=== PATIENT | male | born 1950 | race Caucasian/White ===

== ENCOUNTER → 2018-07-31 | Outpatient (CLI) | payer OTHER, MEDICARE ==
[~2018-07-31] MED LIST: ALLOPURINOL300 MG PO; AMLODIPINE BESYL5 MG PO; ASPIRIN BUFFER325 MG PO; BENICAR/HCT PO; FLOMAX0.4 MG PO; FUROSEMIDE20 MG PO; GLIMEPIRIDE2 MG PO; JANUMET 50-1,01 EACH; JANUVIA PO; LIPITOR10 MG PO; METAMUCIL; METOPROLOL SUC100 MG PO; PAROXETINE HCL10 MG PO; PROCARDIA XL30 MG PO; QUINAPRIL HCL40 MG PO; RANITIDINE HCL300 MG PO; VICTOZA PO; VYTORIN 10-401 EACH
--- NOTE | 2018-07-31 17:10 | Diagnostic Imaging Report ---
EXAM: Testicular Ultrasound DATE: 07/31/2018 3:54 PM INDICATION: Benign neoplasm epididymis. COMPARISON: None FINDINGS: Routine testicular ultrasound was performed. Right testicle: 38 x 18 x 27 mm. Flow is present. No testicular mass identified. 6 mm cyst superiorly. 5 mm cyst midportion with minimal internal echogenicity. Left testicle: 37 x 20 x 22 mm. Flow is present. No testicular mass identified. 3 mm cyst superiorly. Right epididymis: 10 x 11 x 9 mm. 4 mm epididymal cyst. Left epididymis: 13 x 8 x 7 mm.. Several epididymal cysts, largest 7 mm. Additionally, there is a 5 mm hypoechoic lesion, not distinctly cyst. Other: None of significance. IMPRESSION: 1. No evidence of testicular torsion or mass. 2. Bilateral testicular and epididymal cyst. 3. Additional 5 mm hypoechoic lesion left epididymis, appearing solid, not cystic. 4. Urologic follow-up recommended. Signed by: Dr. Kishore Valenzuela MD on 07/31/2018 5:06 PM
== END ==
LOC: US 15:44
PROVIDERS: ATTEND Urology
DX: D29.30 Benign neoplasm of unspecified epididymis (principal)
CPT/HCPCS: 76870; 93976

== ENCOUNTER → 2018-10-31 | Outpatient (CLI) | payer OTHER, MEDICARE ==
--- NOTE | 2018-10-31 15:46 | Diagnostic Imaging Report ---
EXAMINATION: Scrotal ultrasound CLINICAL INDICATION: Epididymal cyst. COMPARISON: 07/31/2018. TECHNIQUE: Grayscale and color Doppler evaluation of the scrotum was performed in transverse and longitudinal planes. FINDINGS: The right testicle measures 3.7 x 1.2 x 2.7 cm. Simple cyst superiorly measures 6 mm. Simple cyst more inferiorly measures 0.4 cm; both stable compared to prior examination.. The right epididymis measures 0.8 x 0.9 x 1.0 cm. Epididymal head cyst measures 4 mm.. There is no evidence of right hydrocele or varicocele. There is normal flow to the right testicle, without evidence of torsion. The left testicle measures 3.9 x 2 x 2.7 cm. 3 mm cyst superiorly, unchanged. The left epididymis measures 1.2 x 0.8 x 0.7 cm. Epididymal head cyst measures 6 mm. Previously described 5 mm hypoechoic lesion not distinctly cystic, is no longer identified.. Small mildly complex left hydrocele. There is normal flow to the left testicle without evidence of torsion. The scrotum has a normal appearance, without focal lesions. Impression: No testicular torsion or solid mass lesion. Stable bilateral testicular and epididymal head cysts. Previously described hypoechoic lesion in the left epididymal head, not distinctly cystic, is no longer identified. Small mildly complex left hydrocele. Signed by: Dr. Bill Zarate M.D. on 10/31/2018 3:42 PM
== END ==
LOC: US 13:38
PROVIDERS: ATTEND Urology
DX: D29.30 Benign neoplasm of unspecified epididymis (principal); N43.3 Hydrocele, unspecified
CPT/HCPCS: 76870; 93976

== ENCOUNTER → 2021-07-20 | Outpatient (CLI) | payer OTHER, MEDICARE | LOC: US 12:14 | PROVIDERS: ATTEND Internal Medicine Nephrology | DX: N18.4 Chronic kidney disease, stage 4 (severe) (principal) | CPT/HCPCS: 76770; 76857 ==

== ENCOUNTER → 2021-08-29 | Outpatient (CLI) | payer OTHER, MEDICARE ==
[2021-08-29 09:27] LABS: CREATININE, SERUM 2.63 mg/dL (0.72-1.25)
== END ==
LOC: NM 07:49
PROVIDERS: ATTEND Urology
DX: C61 Malignant neoplasm of prostate (principal)
CPT/HCPCS: 36415; 71046; 74176; 78306; 82565; 84520; A9503; A9570

== ENCOUNTER 2021-10-24 11:03 | Inpatient (IN) | payer OTHER, MEDICARE ==
[2021-10-20 14:56] LABS: BASOPHILS # (AUTO) 0.1 (0.0-0.1); EOSINOPHILS # (AUTO) 0.3 (0.0-0.4); EOSINOPHILS % 2.7 % (0.0-6.0); HEMATOCRIT 36.4 % (38.2-49.6); HEMOGLOBIN 12.1 g/dL (14.0-18.0); LYMPHOCYTES # (AUTO) 1.3 (1.0-3.2); LYMPHOCYTES % 13.6 % (18.0-39.1); MEAN CORPUSCULAR HEMOGLOBIN 29.8 pg (28-32); MEAN CORPUSCULAR HGB CONC 33.2 g/dL (31-35); MEAN CORPUSCULAR VOLUME 89.7 fL (81-99); MONOCYTES # (AUTO) 0.9 (0.2-0.8); MONOCYTES % 9.5 % (4.4-11.3); NEUTROPHILS # (AUTO) 6.8 (2.1-6.9); NEUTROPHILS % 72.9 % (38.7-80.0); PLATELET COUNT 247 x10e3/uL (140-360); RED BLOOD COUNT 4.06 x10e6/uL (4.3-5.7); RED CELL DISTRIBUTION WIDTH 14.1 % (11.7-14.4)
[2021-10-20 15:07] LABS: INR 1.03; PROTHROMBIN TIME 14.2 seconds (11.9-14.5)
[2021-10-20 15:08] LABS: PARTIAL THROMBOPLASTIN TIME 38.7 seconds (23.8-35.5)
[2021-10-20 15:12] LABS: ANION GAP 16.9 mmol/L (8-16); CALCIUM 9.3 mg/dL (8.4-10.2); CREATININE, SERUM 2.85 mg/dL (0.72-1.25); POTASSIUM 4.9 mmol/L (3.5-5.1)
[~2021-10-24 11:03] MED LIST changes: +ASPIRIN81 MG PO; +FINASTERIDE5 MG PO; +FISH OIL 1,0001 EAC2 PO; +HUMALOG100 UNIT/1 SQ; +LEVEMIR FL100 UNIT/1 SC; +LEVOTHYROXINE50 MCG PO; +METAMUCIL FIBE3.4 GM PO; +MONTELUKAST SOD10 MG PO; +MULTIVITAMIN1 EACH PO; +PLAVIX75 MG PO; +PROTONIX40 MG PO; +SERTRALINE HCL50 MG PO; +VICTOZA 2-0.6 MG/0.1 INJ
[2021-10-24] MEDS ORDERED: SODIUM CHLORIDE 0.9% 50ML 100 ML ONE (11:13)
[2021-10-24] MEDS ORDERED: ROCURONIUM BROMIDE 10 MG/ML 5ML VIAL IV ONE (13:23)
[2021-10-24] MEDS ORDERED: LIDOCAINE HCL 2% LOCAL INJ 5 ML SDV VIAL INJ ONE (13:23)
[2021-10-24] MEDS ORDERED: GLYCOPYRROLATE INJ 0.2 MG/ML VIAL ONE (13:23)
[2021-10-24] MEDS ORDERED: POVIDONE IODINE 0.05% 0.05 % ML PO ONE (13:23)
[2021-10-24] MEDS ORDERED: SEVOFLURANE INHAL SOLN 250 ML PEN BTL ONE (13:23)
[2021-10-24] MEDS ORDERED: PROPOFOL IV EMULSION 10 MG/ML 20 ML VIAL ONE (13:23)
[2021-10-24] MEDS ORDERED: ONDANSETRON HCL INJ 2MG/ML 2ML 2 MG/ML VIAL ONE (13:23)
[2021-10-24] MEDS ORDERED: NEOSTIGMINE 1 MG/ML 10ML VIAL ONE (13:23)
[2021-10-24] MEDS ORDERED: ACETAMINOPHEN 1000 MG/100 ML 100 ML IV ONE (13:35)
[2021-10-24] MEDS ORDERED: MIDAZOLAM HCL 2 MG/2 ML VIAL ONE (13:50)
[2021-10-24] MEDS ORDERED: FENTANYL CITRATE/PF 100MCG/2 ML INJ ONE ×2 (13:50→15:23)
[2021-10-24] MEDS ORDERED: DIPHENHYDRAMINE HCL INJ 50 MG/ML VIAL IM PRN (14:45)
[2021-10-24] MEDS ORDERED: ONDANSETRON HCL INJ 2MG/ML 2ML 2 MG/ML VIAL IV PRN (14:45)
[2021-10-24] MEDS ORDERED: ACETAMINOPHEN 1000 MG/100 ML IV PRN (14:45)
[2021-10-24] MEDS ORDERED: NALOXONE HCL INJ 0.4 MG/ML AMP IV PRN (14:45)
[2021-10-24] MEDS ORDERED: SUGAMMADEX SODIUM 200 MG/2 ML VIAL IV ONE (14:48)
[2021-10-24 15:03] LABS: BASOPHILS # (AUTO) 0.1 (0.0-0.1); BASOPHILS % 0.6 % (0.0-1.0); EOSINOPHILS # (AUTO) 0.1 (0.0-0.4); EOSINOPHILS % 1.4 % (0.0-6.0); HEMATOCRIT 33.8 % (38.2-49.6); HEMOGLOBIN 11.1 g/dL (14.0-18.0); LYMPHOCYTES # (AUTO) 1.3 (1.0-3.2); LYMPHOCYTES % 13.8 % (18.0-39.1); MEAN CORPUSCULAR HGB CONC 32.8 g/dL (31-35); MEAN CORPUSCULAR VOLUME 91.4 fL (81-99); MONOCYTES # (AUTO) 1.1 (0.2-0.8); MONOCYTES % 11.7 % (4.4-11.3); NEUTROPHILS % 72.2 % (38.7-80.0); PLATELET COUNT 226 x10e3/uL (140-360); RED CELL DISTRIBUTION WIDTH 14.4 % (11.7-14.4)
[2021-10-24 15:20] LABS: ANION GAP 16.9 mmol/L (8-16); CALCIUM 8.3 mg/dL (8.4-10.2); CREATININE, SERUM 2.5 mg/dL (0.72-1.25); POTASSIUM 3.9 mmol/L (3.5-5.1)
[2021-10-24] MEDS: HYDROMORPHONE 0.2MG/ML-SOD CHL 30ML PCA SYRINGE IV PRN (15:55)
[2021-10-24 16:30] VITALS: BP 179/85
[2021-10-24 18:00] VITALS: BP 139/83
[2021-10-24 20:00] VITALS: BP 173/84
[2021-10-24] MEDS: Cefazolin 1 GM in SODIUM CHLORIDE 0.9% 50ML 50 ML IV SCH (20:39)
[2021-10-24] MEDS: SODIUM CHLORIDE 0.9% 250ML IRRIG IR SCH (22:45)
[2021-10-25] VITALS (7 sets, daily range): BP systolic 119–190; BP diastolic 78–93
[2021-10-25] MEDS: SODIUM CHLORIDE 0.9% 250ML IRRIG IR SCH ×6 (02:45→21:46)
[2021-10-25] MEDS: Cefazolin 1 GM in SODIUM CHLORIDE 0.9% 50ML 50 ML IV SCH ×3 (03:41→21:45)
[2021-10-25] MEDS: SODIUM CHLORIDE 0.9% 1000ML 1,000 ML IV SCH ×3 (05:18→21:46)
[2021-10-25 05:27] LABS: BASOPHILS # (AUTO) 0.1 (0.0-0.1); BASOPHILS % 0.7 % (0.0-1.0); EOSINOPHILS # (AUTO) 0.1 (0.0-0.4); EOSINOPHILS % 0.8 % (0.0-6.0); HEMATOCRIT 32.2 % (38.2-49.6); LYMPHOCYTES # (AUTO) 0.7 (1.0-3.2); LYMPHOCYTES % 6.4 % (18.0-39.1); MEAN CORPUSCULAR HGB CONC 34.2 g/dL (31-35); MEAN CORPUSCULAR VOLUME 87.7 fL (81-99); MONOCYTES # (AUTO) 1.5 (0.2-0.8); MONOCYTES % 12.7 % (4.4-11.3); NEUTROPHILS # (AUTO) 9.1 (2.1-6.9); PLATELET COUNT 224 x10e3/uL (140-360); RED BLOOD COUNT 3.67 x10e6/uL (4.3-5.7); RED CELL DISTRIBUTION WIDTH 14.3 % (11.7-14.4)
[2021-10-25 05:46] LABS: ANION GAP 16.6 mmol/L (8-16); CALCIUM 8.1 mg/dL (8.4-10.2); CREATININE, SERUM 2.35 mg/dL (0.72-1.25); POTASSIUM 3.6 mmol/L (3.5-5.1)
[2021-10-25] MEDS: METOPROLOL TARTRATE INJ 1 MG/ML VIAL IV PRN ×4 (05:49→21:55)
[2021-10-25] MEDS: HYDROMORPHONE 0.2MG/ML-SOD CHL 30ML PCA SYRINGE IV PRN (22:31)
[2021-10-26] VITALS (10 sets, daily range): BP systolic 131–203; BP diastolic 74–98
[2021-10-26] MEDS: SODIUM CHLORIDE 0.9% 250ML IRRIG IR SCH ×6 (05:18→21:43)
[2021-10-26] MEDS: Cefazolin 1 GM in SODIUM CHLORIDE 0.9% 50ML 50 ML IV SCH ×3 (05:18→20:31)
[2021-10-26] MEDS ORDERED: HYDRALAZINE HCL 20 MG/ML VIAL IV ONE (05:30)
[2021-10-26 05:58] LABS: BASOPHILS # (AUTO) 0.1 (0.0-0.1); BASOPHILS % 0.5 % (0.0-1.0); EOSINOPHILS # (AUTO) 0.1 (0.0-0.4); EOSINOPHILS % 0.9 % (0.0-6.0); HEMATOCRIT 33.5 % (38.2-49.6); HEMOGLOBIN 11.4 g/dL (14.0-18.0); LYMPHOCYTES # (AUTO) 0.9 (1.0-3.2); LYMPHOCYTES % 7.4 % (18.0-39.1); MEAN CORPUSCULAR HEMOGLOBIN 29.7 pg (28-32); MEAN CORPUSCULAR VOLUME 87.2 fL (81-99); MONOCYTES # (AUTO) 1.6 (0.2-0.8); MONOCYTES % 13.3 % (4.4-11.3); NEUTROPHILS # (AUTO) 9.1 (2.1-6.9); NEUTROPHILS % 77.4 % (38.7-80.0); PLATELET COUNT 215 x10e3/uL (140-360); RED BLOOD COUNT 3.84 x10e6/uL (4.3-5.7); RED CELL DISTRIBUTION WIDTH 14.4 % (11.7-14.4)
[2021-10-26 06:34] LABS: ANION GAP 17.5 mmol/L (8-16); CALCIUM 8.5 mg/dL (8.4-10.2); CREATININE, SERUM 2.08 mg/dL (0.72-1.25); POTASSIUM 3.5 mmol/L (3.5-5.1)
[2021-10-26] MEDS: SODIUM CHLORIDE 0.9% 1000ML 1,000 ML IV SCH ×3 (09:00→19:00)
[2021-10-26] MEDS ORDERED: HYDRALAZINE HCL 20 MG/ML VIAL IV PRN (09:15)
[2021-10-26] MEDS: HYDRALAZINE HCL 20 MG/ML VIAL IV PRN ×2 (11:20→17:58)
[2021-10-26] MEDS ORDERED: NIFEDIPINE CR 30 MG TAB PO SCH ×2 (15:30→21:00)
[2021-10-26] MEDS: NIFEDIPINE CR 30 MG TAB PO SCH (21:42)
[2021-10-27] VITALS: BP 152/81
[2021-10-27] MEDS: SODIUM CHLORIDE 0.9% 250ML IRRIG IR SCH ×4 (02:05→14:18)
[2021-10-27] MEDS: Cefazolin 1 GM in SODIUM CHLORIDE 0.9% 50ML 50 ML IV SCH ×2 (03:24→12:12)
[2021-10-27 04:00] VITALS: BP 178/90
[2021-10-27] MEDS: SODIUM CHLORIDE 0.9% 1000ML 1,000 ML IV SCH ×2 (04:59→15:00)
[2021-10-27] MEDS: HYDRALAZINE HCL 20 MG/ML VIAL IV PRN (05:19)
[2021-10-27 05:36] LABS: BASOPHILS # (AUTO) 0.1 (0.0-0.1); BASOPHILS % 0.4 % (0.0-1.0); EOSINOPHILS # (AUTO) 0.3 (0.0-0.4); EOSINOPHILS % 2.2 % (0.0-6.0); HEMOGLOBIN 11.7 g/dL (14.0-18.0); LYMPHOCYTES # (AUTO) 1.2 (1.0-3.2); MEAN CORPUSCULAR HEMOGLOBIN 29.9 pg (28-32); MEAN CORPUSCULAR HGB CONC 34.4 g/dL (31-35); MONOCYTES # (AUTO) 1.5 (0.2-0.8); MONOCYTES % 12.8 % (4.4-11.3); NEUTROPHILS # (AUTO) 8.8 (2.1-6.9); NEUTROPHILS % 74.1 % (38.7-80.0); PLATELET COUNT 225 x10e3/uL (140-360); RED BLOOD COUNT 3.91 x10e6/uL (4.3-5.7); RED CELL DISTRIBUTION WIDTH 14.6 % (11.7-14.4)
[2021-10-27 06:06] LABS: ANION GAP 17.1 mmol/L (8-16); CALCIUM 8.6 mg/dL (8.4-10.2); POTASSIUM 3.1 mmol/L (3.5-5.1)
[2021-10-27 06:44] LABS: CREATININE, SERUM 1.86 mg/dL (0.72-1.25)
[2021-10-27 06:47] VITALS: BP 166/88
[2021-10-27 08:00] VITALS: BP 178/84
[2021-10-27] MEDS ORDERED: ONDANSETRON HCL 4 MG ORAL DISINTEGRATING TAB PO PRN (08:00)
[2021-10-27] MEDS ORDERED: TRAMADOL HCL 50 MG TAB PO PRN (08:45)
[2021-10-27] MEDS ORDERED: DOCUSATE SODIUM 100 MG CAP PO SCH ×2 (09:00→10:00)
[2021-10-27] MEDS ORDERED: FINASTERIDE 5 MG TAB PO SCH (09:00)
[2021-10-27] MEDS ORDERED: NIFEDIPINE CR 30 MG TAB PO SCH (09:00)
[2021-10-27] MEDS ORDERED: TAMSULOSIN HCL 0.4 MG CAP PO SCH (09:00)
[2021-10-27] MEDS: NIFEDIPINE CR 30 MG TAB PO SCH (09:00)
[2021-10-27] MEDS ORDERED: POTASSIUM CHLORIDE 20 MEQ TAB CR PO ONE ×2 (11:00)
[2021-10-27 11:10] VITALS: BP 178/84
[2021-10-27 12:00] VITALS: BP 133/70
[2021-10-27] MEDS ORDERED: ULTRAM 50MG50 MG PO (15:51)
[2021-10-27] MEDS ORDERED: BACTRIM DS TAB1 EACH PO (15:52)
[2021-10-27] MEDS ORDERED: ATORVASTATIN 40 MG TAB PO SCH (21:00)
== END 2021-10-27 16:55 | disposition home or self-care (01) | DRG 715 ==
LOC: OR 11:03 → PACU V 14:40 → MED/SURG 16:26
PROC: 07BC0ZX Excision of Pelvis Lymphatic, Open Approach, Diagnostic (ICD-10-PCS; 2021-10-24)
PROC: 0WQF0ZZ Repair Abdominal Wall, Open Approach (ICD-10-PCS; 2021-10-24)
PROC: 0TJB8ZZ Inspection of Bladder, Via Natural or Artificial Opening Endoscopic (ICD-10-PCS; principal; 2021-10-24 12:30)
DX: C61 Malignant neoplasm of prostate (principal); N18.4 Chronic kidney disease, stage 4 (severe); N13.8 Other obstructive and reflux uropathy; N17.9 Acute kidney failure, unspecified; N40.1 Benign prostatic hyperplasia with lower urinary tract symptoms; R35.1 Nocturia; K42.9 Umbilical hernia without obstruction or gangrene; E87.6 Hypokalemia; E66.9 Obesity, unspecified; N28.1 Cyst of kidney, acquired; E78.5 Hyperlipidemia, unspecified; E11.22 Type 2 diabetes mellitus with diabetic chronic kidney disease; I25.10 Atherosclerotic heart disease of native coronary artery without angina pectoris; D64.9 Anemia, unspecified; I13.10 Hypertensive heart and chronic kidney disease without heart failure, with stage 1 through stage 4 chronic kidney disease, or unspecified chronic kidney disease; Z68.31 Body mass index [BMI] 31.0-31.9, adult; Z88.5 Allergy status to narcotic agent; Z88.8 Allergy status to other drugs, medicaments and biological substances; Z95.1 Presence of aortocoronary bypass graft; Z95.5 Presence of coronary angioplasty implant and graft; Z86.73 Personal history of transient ischemic attack (TIA), and cerebral infarction without residual deficits; Z82.49 Family history of ischemic heart disease and other diseases of the circulatory system; Z83.3 Family history of diabetes mellitus; Z87.891 Personal history of nicotine dependence; Z20.822 Contact with and (suspected) exposure to COVID-19
CPT/HCPCS: 36415; 80048; 82948; 83735; 85025; 85610; 85730; 86850; 86900; 88305; 88342; 93005; 94799; J0360; J0690; J2001; J2250; J2405; J2710; J3010; J7030; U0002

== ENCOUNTER 2024-06-22 08:24 | Inpatient (IN) | payer MEDICARE, OTHER ==
[~2024-06-22] VITALS: Ht 185.4 cm; Wt 97.5 kg
[2024-06-22] VITALS (7 sets, daily range): BP systolic 142–153; BP diastolic 82–87; PULSE 77–89; RESP 16–20; TEMP 97.7–99.1; O2SAT 96–98
[~2024-06-22 08:24] MED LIST changes: +B12 ACTIVE1000 MCG PO; +BACTRIM DS TAB1 EACH PO; +CALCIUM CITRAT200 MG PO; +DOXYCYCLINE HY100 M3 PO; +JYNARQUE PO; +LASIX40 MG PO; +LISINOPRIL10 MG PO; +MELATONIN10 M1 PO; +MUPIROCIN22 GM TOP; +ULTRAM 50MG50 MG PO; +VICTOZA 2-0.6 MG/0.1 SQ; +VITAMIN D350 MCG PEG; +[UNRECOGNIZED DRUG - OTHER] PO
[2024-06-22] MEDS ORDERED: SODIUM CHLORIDE FLUSH 10 ML SYR IV PRN (08:45)
[2024-06-22 08:51] LABS: BASOPHILS # (AUTO) 0.1 (0.0-0.1); BASOPHILS % 0.6 % (0.0-1.0); EOSINOPHILS # (AUTO) 0.4 (0.0-0.4); EOSINOPHILS % 3.5 % (0.0-6.0); HEMATOCRIT 31.4 % (38.2-49.6); HEMOGLOBIN 10.7 g/dL (14.0-18.0); LYMPHOCYTES # (AUTO) 1.5 (1.0-3.2); LYMPHOCYTES % 14.3 % (18.0-39.1); MEAN CORPUSCULAR HEMOGLOBIN 32.2 pg (28-32); MEAN CORPUSCULAR HGB CONC 34.1 g/dL (31-35); MEAN CORPUSCULAR VOLUME 94.6 fL (81-99); MONOCYTES # (AUTO) 1.2 (0.2-0.8); MONOCYTES % 12.1 % (4.4-11.3); NEUTROPHILS % 69.2 % (38.7-80.0); PLATELET COUNT 225 x10e3/uL (140-360); RED BLOOD COUNT 3.32 x10e6/uL (4.3-5.7); WHITE BLOOD COUNT 10.18 x10e3/uL (4.8-10.8)
[2024-06-22] MEDS ORDERED: PAROXETINE HCL20 MG PO (08:52)
[2024-06-22 09:12] LABS: ALBUMIN/GLOBULIN RATIO 1.5 (0.8-2.0); ANION GAP 17.8 mmol/L (8-16); BILIRUBIN,TOTAL 1.3 mg/dL (0.2-1.2); CALCIUM 9.6 mg/dL (8.4-10.2); POTASSIUM 3.8 mmol/L (3.5-5.1); TOTAL PROTEIN 6.7 g/dL (6.5-8.1)
[2024-06-22 09:18] LABS: TROPONIN I 0.117 ng/mL (0-0.300)
[2024-06-22] MEDS ORDERED: SODIUM CHLORIDE FLUSH 10 ML SYR INJ PRN (11:00)
[2024-06-22] MEDS ORDERED: ONDANSETRON HCL INJ 2MG/ML 2ML 2 MG/ML VIAL IV PRN (11:00)
[2024-06-22] MEDS: ASPIRIN 81 MG CHEW TAB PO ONE (11:16)
[2024-06-22] MEDS: FUROSEMIDE INJ 10 MG/ML 4 ML VIAL IV SCH (11:22)
[2024-06-22] MEDS ORDERED: ACETAMINOPHEN 325 MG TAB PO PRN (14:15)
[2024-06-22] MEDS ORDERED: DEXTROSE 50% SYRINGE 50 ML IV PRN (14:15)
[2024-06-22] MEDS ORDERED: JYNARQUE PO ×2 (15:15)
[2024-06-22] MEDS ORDERED: APIXABAN 5 MG TABLET PO SCH (17:00)
[2024-06-22] MEDS: INSULIN LISPRO 100 UNIT/1 ML 3ML VIAL SQ SCH (17:24)
[2024-06-22 19:42] LABS: COLOR,URINE STRAW (YELLOW)
[2024-06-22 19:43] LABS: BACTERIA,URINE RARE /HPF; BILIRUBIN,URINE NEGATIVE (NEGATIVE); CLARITY,URINE CLEAR (CLEAR); GLUCOSE, URINE NEGATIVE (NEGATIVE); KETONES,URINE NEGATIVE (NEGATIVE); LEUKOCYTE ESTERASE ,URINE NEGATIVE (NEGATIVE); NITRITE,URINE NEGATIVE (NEGATIVE); PH,URINE 6 (5 - 7); PROTEIN,URINE DIPSTICK NEGATIVE (NEGATIVE); RBC,URINE 0-5 /HPF (0-5); URINE UROBILINOGEN 0.2 mg/dL (0.2 - 1); WBC,URINE (MAN) 0-5 /HPF (0-5)
[2024-06-22] MEDS: TOLVAPTAN 30 MG PO SCH (21:00)
[2024-06-22] MEDS ORDERED: ZOLPIDEM TARTRATE 5 MG TAB PO PRN (21:00)
[2024-06-22] MEDS: ATORVASTATIN 40 MG TAB PO SCH (21:03)
[2024-06-22] MEDS: MONTELUKAST SODIUM 10 MG TAB PO SCH (21:03)
[2024-06-22] MEDS: PANTOPRAZOLE SODIUM 40 MG SUSPDR.PKT PO SCH (21:03)
[2024-06-22] MEDS: METOPROLOL SUCCINATE 50 MG TAB XL PO SCH (21:04)
[2024-06-23] VITALS (9 sets, daily range): BP systolic 131–163; BP diastolic 68–89; PULSE 56–80; RESP 16–19; TEMP 97.8–98.7; O2SAT 95–100
[2024-06-23] MEDS: LEVOTHYROXINE SODIUM 25 MCG TABLET PO SCH (05:05)
[2024-06-23 06:00] LABS: BASOPHILS # (AUTO) 0.1 (0.0-0.1); BASOPHILS % 0.6 % (0.0-1.0); EOSINOPHILS # (AUTO) 0.4 (0.0-0.4); EOSINOPHILS % 3.6 % (0.0-6.0); HEMATOCRIT 33.6 % (38.2-49.6); HEMOGLOBIN 10.9 g/dL (14.0-18.0); LYMPHOCYTES # (AUTO) 1.4 (1.0-3.2); LYMPHOCYTES % 11.8 % (18.0-39.1); MEAN CORPUSCULAR HEMOGLOBIN 31.4 pg (28-32); MEAN CORPUSCULAR HGB CONC 32.4 g/dL (31-35); MEAN CORPUSCULAR VOLUME 96.8 fL (81-99); MONOCYTES # (AUTO) 1.1 (0.2-0.8); MONOCYTES % 9.2 % (4.4-11.3); NEUTROPHILS # (AUTO) 8.5 (2.1-6.9); NEUTROPHILS % 74.5 % (38.7-80.0); PLATELET COUNT 239 x10e3/uL (140-360); RED BLOOD COUNT 3.47 x10e6/uL (4.3-5.7); WHITE BLOOD COUNT 11.46 x10e3/uL (4.8-10.8)
[2024-06-23 06:13] LABS: TROPONIN I 0.151 ng/mL (0-0.300)
[2024-06-23 06:19] LABS: ALBUMIN 3.8 g/dL (3.5-5.0); ALBUMIN/GLOBULIN RATIO 1.4 (0.8-2.0); ANION GAP 17.8 mmol/L (8-16); BILIRUBIN,TOTAL 1.7 mg/dL (0.2-1.2); CALCIUM 9.4 mg/dL (8.4-10.2); CREATININE, SERUM 4.02 mg/dL (0.72-1.25); POTASSIUM 3.8 mmol/L (3.5-5.1); TOTAL PROTEIN 6.6 g/dL (6.5-8.1)
[2024-06-23] MEDS ORDERED: METOPROLOL SUCCINATE 50 MG TAB XL PO SCH (09:00)
[2024-06-23] MEDS ORDERED: CLOPIDOGREL BISULFATE 75 MG TAB PO SCH (09:00)
[2024-06-23] MEDS ORDERED: TOLVAPTAN 30 MG TAB PO SCH (09:00)
[2024-06-23] MEDS ORDERED: ASPIRIN 81 MG CHEW TAB PO SCH (09:00)
[2024-06-23] MEDS: TOLVAPTAN PO SCH (09:00)
[2024-06-23] MEDS: TAMSULOSIN HCL 0.4 MG CAP PO SCH (09:07)
[2024-06-23] MEDS: SENNOSIDES 8.6 MG TAB PO SCH (09:07)
[2024-06-23] MEDS: POLYETHYLENE GLYCOL 3350 17 GM PACK PO SCH (09:08)
[2024-06-23] MEDS: PAROXETINE HCL 20 MG TAB PO SCH (09:08)
[2024-06-23] MEDS: FINASTERIDE 5 MG TAB PO SCH (09:08)
[2024-06-23] MEDS: LEVOFLOXACIN 500 MG TAB PO ONE (14:28)
[2024-06-23 16:41] LABS: TROPONIN I 0.136 ng/mL (0-0.300)
[2024-06-24] VITALS (12 sets, daily range): BP systolic 117–142; BP diastolic 73–80; PULSE 55–86; RESP 17–20; TEMP 97.5–98.3; O2SAT 93–99
[2024-06-24 06:26] LABS: BASOPHILS # (AUTO) 0.1 (0.0-0.1); BASOPHILS % 0.8 % (0.0-1.0); EOSINOPHILS # (AUTO) 0.4 (0.0-0.4); EOSINOPHILS % 4.2 % (0.0-6.0); HEMATOCRIT 29.3 % (38.2-49.6); HEMOGLOBIN 9.8 g/dL (14.0-18.0); LYMPHOCYTES # (AUTO) 1.6 (1.0-3.2); LYMPHOCYTES % 18.1 % (18.0-39.1); MEAN CORPUSCULAR HEMOGLOBIN 31.5 pg (28-32); MEAN CORPUSCULAR HGB CONC 33.4 g/dL (31-35); MEAN CORPUSCULAR VOLUME 94.2 fL (81-99); MONOCYTES # (AUTO) 1.2 (0.2-0.8); MONOCYTES % 12.9 % (4.4-11.3); NEUTROPHILS # (AUTO) 5.8 (2.1-6.9); NEUTROPHILS % 63.7 % (38.7-80.0); PLATELET COUNT 206 x10e3/uL (140-360); RED BLOOD COUNT 3.11 x10e6/uL (4.3-5.7); RED CELL DISTRIBUTION WIDTH 13.7 % (11.7-14.4); WHITE BLOOD COUNT 9.07 x10e3/uL (4.8-10.8)
[2024-06-24 06:56] LABS: ALBUMIN 3.4 g/dL (3.5-5.0); ALBUMIN/GLOBULIN RATIO 1.4 (0.8-2.0); ANION GAP 18.5 mmol/L (8-16); BILIRUBIN,TOTAL 1.8 mg/dL (0.2-1.2); CALCIUM 8.9 mg/dL (8.4-10.2); CREATININE, SERUM 4.44 mg/dL (0.72-1.25); POTASSIUM 3.5 mmol/L (3.5-5.1); TOTAL PROTEIN 5.8 g/dL (6.5-8.1)
[2024-06-24] MEDS ORDERED: LEVOFLOXACIN 250 MG TAB PO SCH (09:00)
[2024-06-24] MEDS ORDERED: Vancomycin IV 1 GM VIAL ONE (15:39)
[2024-06-24] MEDS ORDERED: LIDOCAINE HCL 2% LOCAL 20 ML VIAL ONE ×2 (15:39→16:54)
[2024-06-24] MEDS ORDERED: GENTAMICIN SULFATE 40 MG/ML 2 ML VIAL ONE (15:39)
[2024-06-24] MEDS ORDERED: SODIUM CHLORIDE 0.9% 500ML 500 ML ONE (15:39)
[2024-06-24] MEDS ORDERED: SODIUM CHLORIDE 0.9% 250ML 250 ML ONE (15:40)
[2024-06-24] MEDS ORDERED: SODIUM CHLORIDE 0.9% 1000ML 2,000 ML ONE (15:40)
[2024-06-24] MEDS ORDERED: IOPAMIDOL 610MG/1ML 300 MG/ML VIAL IV ONE (15:40)
[2024-06-24] MEDS ORDERED: FENTANYL CITRATE/PF 100MCG/2 ML INJ ONE (16:44)
[2024-06-24] MEDS ORDERED: MIDAZOLAM HCL 2 MG/2 ML VIAL ONE (16:44)
[2024-06-24] MEDS ORDERED: ONDANSETRON HCL INJ 2MG/ML 2ML 2 MG/ML VIAL ONE (18:00)
[2024-06-25] VITALS: BP 127/68; PULSE 61; RESP 18; TEMP 98.2; O2SAT 98
[2024-06-25 04:00] VITALS: BP 139/81; PULSE 61; RESP 18; TEMP 98; O2SAT 98
[2024-06-25 06:48] LABS: ANION GAP 22.6 mmol/L (8-16); CALCIUM 8.8 mg/dL (8.4-10.2); CREATININE, SERUM 4.81 mg/dL (0.72-1.25); POTASSIUM 3.6 mmol/L (3.5-5.1)
[2024-06-25 07:20] VITALS: PULSE 70; RESP 18; O2SAT 98
[2024-06-25 07:56] VITALS: BP 136/68; PULSE 70; RESP 17; TEMP 97.7; O2SAT 100
[2024-06-25 08:00] VITALS: BP 136/68; PULSE 70; RESP 17; TEMP 97.7; O2SAT 100
[2024-06-25] MEDS ORDERED: DOXYCYCLINE HY100 MG PO (08:44)
[2024-06-25] MEDS ORDERED: FUROSEMIDE40 MG PO (08:44)
[2024-06-25 08:54] VITALS: BP 136/68; PULSE 70
[2024-06-25] MEDS: FUROSEMIDE 40 MG TAB PO SCH (08:54)
[2024-06-25] MEDS ORDERED: AMBIEN10 MG PO (09:11)
== END 2024-06-25 10:35 | disposition home or self-care (01) | DRG 276 ==
LOC: ER 08:38 → ERHOLD 11:00 → MED/SURG3 12:35
PROVIDERS: ADMIT Internal Medicine; ATTEND Internal Medicine
PROC: 0JH608Z Insertion of Defibrillator Generator into Chest Subcutaneous Tissue and Fascia, Open Approach (ICD-10-PCS; principal; 2024-06-24)
PROC: 02H63KZ Insertion of Defibrillator Lead into Right Atrium, Percutaneous Approach (ICD-10-PCS; 2024-06-24)
PROC: 02HK3KZ Insertion of Defibrillator Lead into Right Ventricle, Percutaneous Approach (ICD-10-PCS; 2024-06-24)
PROC: 3E0132A Introduction of Anti-Infective Envelope into Subcutaneous Tissue, Percutaneous Approach (ICD-10-PCS; 2024-06-24)
DX: I13.0 Hypertensive heart and chronic kidney disease with heart failure and stage 1 through stage 4 chronic kidney disease, or unspecified chronic kidney disease (principal); I50.23 Acute on chronic systolic (congestive) heart failure; N18.4 Chronic kidney disease, stage 4 (severe); N17.9 Acute kidney failure, unspecified; I25.810 Atherosclerosis of coronary artery bypass graft(s) without angina pectoris; Q61.3 Polycystic kidney, unspecified; I25.5 Ischemic cardiomyopathy; E11.22 Type 2 diabetes mellitus with diabetic chronic kidney disease; E11.319 Type 2 diabetes mellitus with unspecified diabetic retinopathy without macular edema; D64.9 Anemia, unspecified; I25.10 Atherosclerotic heart disease of native coronary artery without angina pectoris; C61 Malignant neoplasm of prostate; Z79.4 Long term (current) use of insulin; K21.9 Gastro-esophageal reflux disease without esophagitis; E78.5 Hyperlipidemia, unspecified; N40.1 Benign prostatic hyperplasia with lower urinary tract symptoms; R80.9 Proteinuria, unspecified; E03.9 Hypothyroidism, unspecified; R00.1 Bradycardia, unspecified; F41.9 Anxiety disorder, unspecified; G47.00 Insomnia, unspecified; M10.9 Gout, unspecified; I25.2 Old myocardial infarction; Z79.02 Long term (current) use of antithrombotics/antiplatelets; Z79.899 Other long term (current) drug therapy; Z87.891 Personal history of nicotine dependence
CPT/HCPCS: 33249; 36415; 71045; 76937; 80048; 80053; 81001; 82550; 82948; 83735; 83880; 84443; 84484; 85025; 93005; 93306; 94760; 94799; 96372; 99152; 99153; 99284; C1721; C1895; C1898; J1580; J1940; J2003; J2250; J2405; J7030; J7040; J7050

== ENCOUNTER 2024-07-10 10:52 | Emergency (ER) | payer MEDICARE ==
[~2024-07-10] VITALS: Ht 185.4 cm; Wt 97.5 kg
[~2024-07-10 10:52] MED LIST changes: +AMBIEN10 MG PO; +DOXYCYCLINE HY100 MG PO; +FUROSEMIDE40 MG PO; +PAROXETINE HCL20 MG PO
[2024-07-10 11:02] VITALS: PULSE 84; RESP 18; TEMP 97.7; O2SAT 100
== END 2024-07-10 13:33 | disposition home or self-care (01) ==
LOC: ER 11:01
DX: S50.02XA Contusion of left elbow, initial encounter (principal); S80.212A Abrasion, left knee, initial encounter; W06.XXXA Fall from bed, initial encounter; Y92.89 Other specified places as the place of occurrence of the external cause; I10 Essential (primary) hypertension; E11.9 Type 2 diabetes mellitus without complications; I50.9 Heart failure, unspecified; J45.909 Unspecified asthma, uncomplicated; E03.9 Hypothyroidism, unspecified; E78.5 Hyperlipidemia, unspecified; Z86.73 Personal history of transient ischemic attack (TIA), and cerebral infarction without residual deficits; Z85.46 Personal history of malignant neoplasm of prostate
CPT/HCPCS: 70450; 72125; 99283

== ENCOUNTER 2024-07-16 13:57 | Emergency (ER) | payer MEDICARE ==
[~2024-07-16] VITALS: Ht 185.4 cm; Wt 97.5 kg
[2024-07-16 14:05] VITALS: TEMP 97.8
[2024-07-16 15:13] VITALS: PULSE 72; RESP 16; O2SAT 97
[2024-07-28] MEDS ORDERED: TOPROL XL50 MG PO (11:13)
[2024-07-28] MEDS ORDERED: METOLAZONE5 MG PO (11:13)
[2024-07-28] MEDS ORDERED: POTASSIUM CHLO20 ME1 PO (11:13)
[2024-07-28] MEDS ORDERED: FUROSEMIDE40 MG PO (11:13)
[2024-07-28] MEDS ORDERED: HYDRALAZINE HCL25 MG PO (11:13)
== END 2024-07-16 15:15 | disposition home or self-care (01) ==
LOC: ER 14:11
DX: S50.02XA Contusion of left elbow, initial encounter (principal); W18.39XA Other fall on same level, initial encounter; Y93.01 Activity, walking, marching and hiking; Y92.89 Other specified places as the place of occurrence of the external cause; Z79.01 Long term (current) use of anticoagulants; I12.9 Hypertensive chronic kidney disease with stage 1 through stage 4 chronic kidney disease, or unspecified chronic kidney disease; E11.22 Type 2 diabetes mellitus with diabetic chronic kidney disease; N18.9 Chronic kidney disease, unspecified; I50.9 Heart failure, unspecified; E78.5 Hyperlipidemia, unspecified; E03.9 Hypothyroidism, unspecified; I25.10 Atherosclerotic heart disease of native coronary artery without angina pectoris; M10.9 Gout, unspecified; K21.9 Gastro-esophageal reflux disease without esophagitis; F41.9 Anxiety disorder, unspecified; F32.A Depression, unspecified; Z85.46 Personal history of malignant neoplasm of prostate; Z86.73 Personal history of transient ischemic attack (TIA), and cerebral infarction without residual deficits
CPT/HCPCS: 99284

== ENCOUNTER 2024-07-26 11:25 | Inpatient (IN) | payer MEDICARE ==
[~2024-07-26] VITALS: Ht 185.4 cm; Wt 95.3 kg
[2024-07-26 11:25] VITALS: PULSE 85; RESP 21; TEMP 97.9
[2024-07-26 12:01] LABS: BASOPHILS # (AUTO) 0.1 (0.0-0.1); BASOPHILS % 0.6 % (0.0-1.0); EOSINOPHILS # (AUTO) 0.4 (0.0-0.4); EOSINOPHILS % 3.7 % (0.0-6.0); HEMATOCRIT 29.6 % (38.2-49.6); HEMOGLOBIN 9.7 g/dL (14.0-18.0); LYMPHOCYTES # (AUTO) 1.1 (1.0-3.2); LYMPHOCYTES % 11.8 % (18.0-39.1); MEAN CORPUSCULAR HEMOGLOBIN 31.8 pg (28-32); MEAN CORPUSCULAR HGB CONC 32.8 g/dL (31-35); MONOCYTES # (AUTO) 1.2 (0.2-0.8); MONOCYTES % 12.4 % (4.4-11.3); NEUTROPHILS # (AUTO) 6.9 (2.1-6.9); NEUTROPHILS % 71.1 % (38.7-80.0); PLATELET COUNT 235 x10e3/uL (140-360); RED BLOOD COUNT 3.05 x10e6/uL (4.3-5.7); RED CELL DISTRIBUTION WIDTH 15.1 % (11.7-14.4); WHITE BLOOD COUNT 9.67 x10e3/uL (4.8-10.8)
[2024-07-26 12:16] LABS: ALBUMIN 3.5 g/dL (3.5-5.0); ALBUMIN/GLOBULIN RATIO 1.4 (0.8-2.0); ANION GAP 17.2 mmol/L (8-16); BILIRUBIN,TOTAL 1.2 mg/dL (0.2-1.2); CALCIUM 8.9 mg/dL (8.4-10.2); CREATININE, SERUM 4.45 mg/dL (0.72-1.25)
[2024-07-26 12:18] LABS: POTASSIUM 3.2 mmol/L (3.5-5.1)
[2024-07-26 12:22] LABS: TROPONIN I 0.144 ng/mL (0-0.300)
[2024-07-26] MEDS ORDERED: SODIUM CHLORIDE FLUSH 10 ML SYR INJ PRN (13:00)
[2024-07-26] MEDS ORDERED: NIFEDIPINE ER90 MG PO (15:16)
[2024-07-26] MEDS ORDERED: ASPIRIN325 MG PO (15:16)
[2024-07-26] MEDS: FUROSEMIDE INJ 10 MG/ML 4 ML VIAL IV SCH (15:29)
[2024-07-26 15:39] VITALS: BP 119/75; PULSE 98; RESP 18; TEMP 98.4; O2SAT 98
[2024-07-26 15:40] VITALS: BP 119/75; PULSE 98; RESP 18; TEMP 98.4; O2SAT 98
[2024-07-26 15:48] VITALS: BP 119/75; PULSE 98; RESP 18; TEMP 98.4; O2SAT 98
[2024-07-26 16:36] VITALS: BP 119/75; PULSE 98; RESP 18; TEMP 98.2; O2SAT 98
[2024-07-26 16:53] LABS: TROPONIN I 0.142 ng/mL (0-0.300)
[2024-07-26] MEDS ORDERED: DEXTROSE 50% SYRINGE 50 ML IV PRN (18:30)
[2024-07-26 20:00] VITALS: BP 119/82; PULSE 99; RESP 18; TEMP 97.3; O2SAT 98
[2024-07-26] MEDS: MONTELUKAST SODIUM 10 MG TAB PO SCH (21:12)
[2024-07-26] MEDS: ZOLPIDEM TARTRATE 10 MG TAB PO PRN (21:12)
[2024-07-26] MEDS: ATORVASTATIN 40 MG TAB PO SCH (21:12)
[2024-07-26] MEDS: SODIUM CHLORIDE FLUSH 10 ML SYR IV PRN (21:13)
[2024-07-26] MEDS ORDERED: ACETAMINOPHEN 325 MG TAB PO PRN (21:45)
[2024-07-26 22:45] LABS: TROPONIN I 0.116 ng/mL (0-0.300)
[2024-07-27] VITALS: BP 127/80; PULSE 64; RESP 18; TEMP 97.7; O2SAT 96
[2024-07-27] MEDS: INSULIN REGULAR, HUMAN 100 UNIT/1 ML SQ SCH (00:02)
[2024-07-27 04:00] VITALS: BP 113/80; PULSE 97; RESP 18; TEMP 97.6; O2SAT 95
[2024-07-27] MEDS: LEVOTHYROXINE SODIUM 25 MCG TABLET PO SCH (05:47)
[2024-07-27 06:05] LABS: BASOPHILS # (AUTO) 0.1 (0.0-0.1); BASOPHILS % 0.7 % (0.0-1.0); EOSINOPHILS # (AUTO) 0.3 (0.0-0.4); HEMOGLOBIN 8.6 g/dL (14.0-18.0); LYMPHOCYTES % 14.8 % (18.0-39.1); MEAN CORPUSCULAR HEMOGLOBIN 31.7 pg (28-32); MEAN CORPUSCULAR HGB CONC 33.1 g/dL (31-35); MEAN CORPUSCULAR VOLUME 95.9 fL (81-99); MONOCYTES # (AUTO) 0.9 (0.2-0.8); MONOCYTES % 13.2 % (4.4-11.3); NEUTROPHILS # (AUTO) 4.7 (2.1-6.9); PLATELET COUNT 193 x10e3/uL (140-360); RED BLOOD COUNT 2.71 x10e6/uL (4.3-5.7); RED CELL DISTRIBUTION WIDTH 14.6 % (11.7-14.4); WHITE BLOOD COUNT 7.02 x10e3/uL (4.8-10.8)
[2024-07-27 06:27] LABS: ALBUMIN/GLOBULIN RATIO 1.5 (0.8-2.0); ANION GAP 16.9 mmol/L (8-16); BILIRUBIN,TOTAL 1.2 mg/dL (0.2-1.2); CALCIUM 8.7 mg/dL (8.4-10.2); CREATININE, SERUM 4.41 mg/dL (0.72-1.25)
[2024-07-27 06:29] LABS: POTASSIUM 2.9 mmol/L (3.5-5.1)
[2024-07-27 06:47] LABS: PHOSPHORUS 4.9 MG/DL (2.3-4.7)
[2024-07-27 06:55] LABS: TROPONIN I 0.124 ng/mL (0-0.300)
[2024-07-27] MEDS: POTASSIUM CHLORIDE 20MEQ/100ML 100 ML IV ONE (08:18)
[2024-07-27] MEDS: POTASSIUM CHLORIDE 10MEQ EA PO ONE (08:18)
[2024-07-27] MEDS: METOLAZONE 5 MG TAB PO ONE (08:18)
[2024-07-27] MEDS: PAROXETINE HCL 20 MG TAB PO SCH (08:18)
[2024-07-27] MEDS: METOPROLOL SUCCINATE 50 MG TAB XL PO SCH (08:19)
[2024-07-27] MEDS: FINASTERIDE 5 MG TAB PO SCH (08:19)
[2024-07-27] MEDS: ALLOPURINOL 300 MG TAB PO SCH (08:20)
[2024-07-27] MEDS: POTASSIUM CHLORIDE 20 MEQ TAB CR PO STA (08:20)
[2024-07-27] MEDS: TAMSULOSIN HCL 0.4 MG CAP PO SCH (08:33)
[2024-07-27] MEDS: CYANOCOBALAMIN 1,000 MCG TAB PO SCH (08:33)
[2024-07-27 08:45] VITALS: BP 155/82; PULSE 58; RESP 18; TEMP 97.6; O2SAT 95
[2024-07-27] MEDS: TOLVAPTAN 30 MG TAB PO SCH ×2 (09:00)
[2024-07-27] MEDS ORDERED: CLOPIDOGREL BISULFATE 75 MG TAB PO SCH (09:00)
[2024-07-27] MEDS ORDERED: METOPROLOL SUCCINATE 50 MG TAB XL PO SCH (09:00)
[2024-07-27] MEDS: ONDANSETRON HCL INJ 2MG/ML 2ML 2 MG/ML VIAL IV PRN (11:31)
[2024-07-27 12:18] VITALS: BP 115/80; PULSE 95; RESP 17; TEMP 98.9; O2SAT 99
[2024-07-27] MEDS: HYDRALAZINE HCL 10 MG TAB PO SCH (13:49)
[2024-07-27] MEDS: HEPARIN SOD (PORCINE) 5,000 UNIT/ML VIAL SC SCH (14:08)
[2024-07-27 16:00] VITALS: BP 115/73; PULSE 86; RESP 24; TEMP 97.5; O2SAT 97
[2024-07-27] MEDS ORDERED: POTASSIUM CHLORIDE 20 MEQ TAB CR PO SCH (17:00)
[2024-07-27] MEDS: TOLVAPTAN 15 MG TAB PO SCH (17:04)
[2024-07-27 20:00] VITALS: BP 110/74; PULSE 98; RESP 20; TEMP 97.4; O2SAT 99
[2024-07-27] MEDS: PANTOPRAZOLE SOD 40 MG TABEC PO SCH (20:27)
[2024-07-28] VITALS: BP 118/72; PULSE 88; RESP 18; TEMP 97.6; O2SAT 99
[2024-07-28 04:00] VITALS: BP 133/87; PULSE 100; RESP 18; TEMP 97.7; O2SAT 99
[2024-07-28 08:28] LABS: BASOPHILS # (AUTO) 0.1 (0.0-0.1); BASOPHILS % 0.8 % (0.0-1.0); EOSINOPHILS # (AUTO) 0.3 (0.0-0.4); HEMATOCRIT 28.2 % (38.2-49.6); HEMOGLOBIN 9.5 g/dL (14.0-18.0); LYMPHOCYTES # (AUTO) 1.5 (1.0-3.2); LYMPHOCYTES % 19.2 % (18.0-39.1); MEAN CORPUSCULAR HEMOGLOBIN 31.6 pg (28-32); MEAN CORPUSCULAR HGB CONC 33.7 g/dL (31-35); MEAN CORPUSCULAR VOLUME 93.7 fL (81-99); MONOCYTES # (AUTO) 1.2 (0.2-0.8); MONOCYTES % 15.5 % (4.4-11.3); NEUTROPHILS # (AUTO) 4.5 (2.1-6.9); NEUTROPHILS % 60.2 % (38.7-80.0); PLATELET COUNT 218 x10e3/uL (140-360); RED BLOOD COUNT 3.01 x10e6/uL (4.3-5.7); RED CELL DISTRIBUTION WIDTH 15.5 % (11.7-14.4); WHITE BLOOD COUNT 7.54 x10e3/uL (4.8-10.8)
[2024-07-28 08:53] LABS: ALBUMIN 3.4 g/dL (3.5-5.0); ALBUMIN/GLOBULIN RATIO 1.4 (0.8-2.0); ANION GAP 17.3 mmol/L (8-16); BILIRUBIN,TOTAL 1.2 mg/dL (0.2-1.2); CALCIUM 8.8 mg/dL (8.4-10.2); CREATININE, SERUM 4.46 mg/dL (0.72-1.25); MAGNESIUM 1.8 MG/DL (1.3-2.1); POTASSIUM 3.3 mmol/L (3.5-5.1); TOTAL PROTEIN 5.9 g/dL (6.5-8.1)
[2024-07-28 09:09] VITALS: BP 114/87; PULSE 65; RESP 19; TEMP 98.4; O2SAT 100
[2024-07-28] MEDS: METOLAZONE 5 MG TAB PO SCH (09:22)
[2024-07-28] MEDS: POTASSIUM CHLORIDE 20 MEQ TAB CR PO SCH (09:22)
[2024-07-28 09:55] VITALS: BP 114/87; PULSE 65; RESP 19; TEMP 98.4; O2SAT 100
[2024-07-28] MEDS ORDERED: HYDRALAZINE HCL25 MG PO (11:13)
[2024-07-28] MEDS ORDERED: POTASSIUM CHLO20 ME1 PO (11:13)
[2024-07-28] MEDS ORDERED: TOPROL XL50 MG PO (11:13)
[2024-07-28] MEDS ORDERED: METOLAZONE5 MG PO (11:13)
[2024-07-28] MEDS ORDERED: FUROSEMIDE40 MG PO (11:13)
[2024-07-28] MEDS: ASPIRIN 81 MG CHEW TAB PO ONE (11:20)
[2024-07-28] MEDS: METOPROLOL SUCCINATE 50 MG TAB XL PO ONE (12:16)
[2024-07-28 12:23] VITALS: BP 111/82; PULSE 89; RESP 18; TEMP 98.1; O2SAT 99
[2024-07-28] MEDS ORDERED: ONDANSETRON HCL 4 MG ORAL DISINTEGRATING TAB PO PRN (12:30)
[2024-07-29] MEDS ORDERED: METOPROLOL SUCCINATE 50 MG TAB XL PO SCH (09:00)
== END 2024-07-28 14:09 | disposition home or self-care (01) | DRG 291 ==
LOC: ER 11:36 → ERHOLD 12:48 → MED/SURG2 15:13 → OBSVTOIN 07-27 09:49
PROVIDERS: ADMIT Internal Medicine; ATTEND Internal Medicine
DX: I13.0 Hypertensive heart and chronic kidney disease with heart failure and stage 1 through stage 4 chronic kidney disease, or unspecified chronic kidney disease (principal); I50.23 Acute on chronic systolic (congestive) heart failure; Q61.2 Polycystic kidney, adult type; E11.22 Type 2 diabetes mellitus with diabetic chronic kidney disease; N18.4 Chronic kidney disease, stage 4 (severe); D63.1 Anemia in chronic kidney disease; Z95.1 Presence of aortocoronary bypass graft; I48.0 Paroxysmal atrial fibrillation; C61 Malignant neoplasm of prostate; E78.5 Hyperlipidemia, unspecified; S50.12XA Contusion of left forearm, initial encounter; E87.6 Hypokalemia; I25.10 Atherosclerotic heart disease of native coronary artery without angina pectoris; I49.5 Sick sinus syndrome; Z11.52 Encounter for screening for COVID-19; N40.0 Benign prostatic hyperplasia without lower urinary tract symptoms; R68.81 Early satiety; R06.01 Orthopnea; K21.9 Gastro-esophageal reflux disease without esophagitis; M10.9 Gout, unspecified; W19.XXXA Unspecified fall, initial encounter; Z79.02 Long term (current) use of antithrombotics/antiplatelets; Z79.82 Long term (current) use of aspirin; Z79.890 Hormone replacement therapy; Z95.5 Presence of coronary angioplasty implant and graft; Z95.810 Presence of automatic (implantable) cardiac defibrillator; Z88.5 Allergy status to narcotic agent; Z88.8 Allergy status to other drugs, medicaments and biological substances; Z87.891 Personal history of nicotine dependence; Z86.73 Personal history of transient ischemic attack (TIA), and cerebral infarction without residual deficits; Z82.49 Family history of ischemic heart disease and other diseases of the circulatory system
CPT/HCPCS: 36415; 71045; 80053; 82550; 82948; 83735; 83880; 84100; 84132; 84484; 85025; 87400; 93005; 94760; 99285; G0378; J1644; J1940; J2405; J3480; U0002

== ENCOUNTER 2024-10-30 16:49 | Inpatient (IN) | payer MEDICARE ==
[~2024-10-30] VITALS: Ht 185.4 cm; Wt 95.3 kg
[~2024-10-30 16:49] MED LIST changes: +ASPIRIN325 MG PO; +HYDRALAZINE HCL25 MG PO; +METOLAZONE5 MG PO; +NIFEDIPINE ER90 MG PO; +POTASSIUM CHLO20 ME1 PO; +TOPROL XL50 MG PO
[2024-10-30 17:00] VITALS: TEMP 97.4
[2024-10-30] MEDS ORDERED: SODIUM CHLORIDE FLUSH 10 ML SYR IV PRN (17:30)
[2024-10-30 17:32] LABS: BASOPHILS # (AUTO) 0.1 (0.0-0.1); BASOPHILS % 0.6 % (0.0-1.0); EOSINOPHILS # (AUTO) 0.3 (0.0-0.4); EOSINOPHILS % 3.2 % (0.0-6.0); HEMOGLOBIN 11.5 g/dL (14.0-18.0); LYMPHOCYTES # (AUTO) 0.8 (1.0-3.2); LYMPHOCYTES % 10.2 % (18.0-39.1); MEAN CORPUSCULAR HEMOGLOBIN 32.3 pg (28-32); MEAN CORPUSCULAR HGB CONC 33.8 g/dL (31-35); MEAN CORPUSCULAR VOLUME 95.5 fL (81-99); MONOCYTES # (AUTO) 1.2 (0.2-0.8); MONOCYTES % 15.5 % (4.4-11.3); NEUTROPHILS # (AUTO) 5.4 (2.1-6.9); NEUTROPHILS % 69.9 % (38.7-80.0); PLATELET COUNT 162 x10e3/uL (140-360); RED BLOOD COUNT 3.56 x10e6/uL (4.3-5.7); RED CELL DISTRIBUTION WIDTH 20.2 % (11.7-14.4); WHITE BLOOD COUNT 7.76 x10e3/uL (4.8-10.8)
[2024-10-30] MEDS ORDERED: TRAZODONE HCL50 MG PO (17:44)
[2024-10-30] MEDS ORDERED: AMIODARONE HCL200 MG PO (17:44)
[2024-10-30] MEDS ORDERED: PRESERVISION A1 EAC2 PO (17:44)
[2024-10-30] MEDS ORDERED: CALCIUM ACETAT667 MG PO (17:44)
[2024-10-30] MEDS ORDERED: DIALYVITE TABL1 EACH PO (17:44)
[2024-10-30] MEDS ORDERED: METOPROLOL SUCC50 MG PO (17:44)
[2024-10-30] MEDS ORDERED: LANTUS 3ML100 UNITS/ SQ (17:45)
[2024-10-30 17:46] LABS: ALBUMIN 3.2 g/dL (3.5-5.0); ALBUMIN/GLOBULIN RATIO 1.1 (0.8-2.0); ANION GAP 15.6 mmol/L (8-16); BILIRUBIN,TOTAL 1.8 mg/dL (0.2-1.2); CREATININE, SERUM 3.79 mg/dL (0.72-1.25); MAGNESIUM 1.9 MG/DL (1.3-2.1); POTASSIUM 3.6 mmol/L (3.5-5.1); TOTAL PROTEIN 6.2 g/dL (6.5-8.1)
[2024-10-30 17:52] LABS: TROPONIN I 0.062 ng/mL (0-0.300)
[2024-10-30] MEDS ORDERED: SODIUM CHLORIDE FLUSH 10 ML SYR INJ PRN (19:15)
[2024-10-30 19:26] VITALS: PULSE 74; RESP 20; O2SAT 100
[2024-10-30 22:00] VITALS: PULSE 94; RESP 24
[2024-10-30 23:00] VITALS: BP 106/82; PULSE 74; RESP 20; O2SAT 95
[2024-10-31] VITALS (7 sets, daily range): BP systolic 106–114; BP diastolic 76–84; PULSE 70–97; RESP 18–20; TEMP 97.6–98.1; O2SAT 94–100
[2024-10-31 06:03] LABS: BASOPHILS % 0.6 % (0.0-1.0); EOSINOPHILS # (AUTO) 0.2 (0.0-0.4); EOSINOPHILS % 3.7 % (0.0-6.0); HEMOGLOBIN 11.1 g/dL (14.0-18.0); LYMPHOCYTES # (AUTO) 0.7 (1.0-3.2); LYMPHOCYTES % 11.4 % (18.0-39.1); MEAN CORPUSCULAR HEMOGLOBIN 35.6 pg (28-32); MEAN CORPUSCULAR HGB CONC 35.8 g/dL (31-35); MEAN CORPUSCULAR VOLUME 99.4 fL (81-99); MONOCYTES # (AUTO) 1.2 (0.2-0.8); MONOCYTES % 18.8 % (4.4-11.3); NEUTROPHILS # (AUTO) 4.2 (2.1-6.9); PLATELET COUNT 128 x10e3/uL (140-360); RED BLOOD COUNT 3.12 x10e6/uL (4.3-5.7); RED CELL DISTRIBUTION WIDTH 22.5 % (11.7-14.4); WHITE BLOOD COUNT 6.43 x10e3/uL (4.8-10.8)
[2024-10-31 06:31] LABS: ALBUMIN 2.8 g/dL (3.5-5.0); ALBUMIN/GLOBULIN RATIO 1.1 (0.8-2.0); ANION GAP 15.5 mmol/L (8-16); BILIRUBIN,TOTAL 1.8 mg/dL (0.2-1.2); CALCIUM 8.8 mg/dL (8.4-10.2); CREATININE, SERUM 4.13 mg/dL (0.72-1.25); POTASSIUM 3.5 mmol/L (3.5-5.1); TOTAL PROTEIN 5.4 g/dL (6.5-8.1)
[2024-10-31 06:55] LABS: TROPONIN I 0.054 ng/mL (0-0.300)
[2024-10-31] MEDS ORDERED: SODIUM CHLORIDE 0.9% 1000ML 2,000 ML IV PRN (09:00)
[2024-10-31] MEDS ORDERED: HEPARIN SOD (PORCINE) 1000 UNIT/ML SDV IV PRN (09:00)
[2024-10-31] MEDS ORDERED: POLYETHYLENE GLYCOL 3350 17 GM PACK PO PRN (11:00)
[2024-10-31] MEDS ORDERED: ACETAMINOPHEN 325 MG TAB PO PRN (11:00)
[2024-10-31] MEDS: INSULIN GLARGINE 100 UNITS/ML VIAL SQ SCH (11:00)
[2024-10-31] MEDS ORDERED: DEXTROSE 50% SYRINGE 50 ML IV PRN (11:00)
[2024-10-31] MEDS: INSULIN LISPRO 100 UNIT/1 ML 3ML VIAL SQ SCH (11:30)
[2024-10-31] MEDS: HYDRALAZINE HCL 25 MG TAB PO SCH (14:37)
[2024-10-31 14:55] LABS: TROPONIN I 0.059 ng/mL (0-0.300)
[2024-10-31] MEDS: METOPROLOL SUCCINATE 50 MG TAB XL PO SCH (21:00)
[2024-10-31] MEDS: HEPARIN SOD (PORCINE) 5,000 UNIT/ML VIAL SC SCH (21:04)
[2024-10-31] MEDS: TRAZODONE HCL 50 MG TAB PO PRN (21:06)
[2024-11-01] VITALS: BP 101/71; PULSE 73; RESP 20; TEMP 98.1; O2SAT 100
[2024-11-01] MEDS: LEVOTHYROXINE SODIUM 50 MCG TAB PO SCH (06:27)
[2024-11-01 06:29] LABS: BASOPHILS # (AUTO) 0.1 (0.0-0.1); EOSINOPHILS # (AUTO) 0.3 (0.0-0.4); EOSINOPHILS % 5.4 % (0.0-6.0); HEMATOCRIT 33.1 % (38.2-49.6); HEMOGLOBIN 11.9 g/dL (14.0-18.0); LYMPHOCYTES # (AUTO) 0.8 (1.0-3.2); LYMPHOCYTES % 13.2 % (18.0-39.1); MEAN CORPUSCULAR HEMOGLOBIN 37.8 pg (28-32); MEAN CORPUSCULAR VOLUME 105.1 fL (81-99); MONOCYTES # (AUTO) 0.9 (0.2-0.8); MONOCYTES % 14.7 % (4.4-11.3); NEUTROPHILS % 65.2 % (38.7-80.0); PLATELET COUNT 134 x10e3/uL (140-360); RED BLOOD COUNT 3.15 x10e6/uL (4.3-5.7); RED CELL DISTRIBUTION WIDTH 24.2 % (11.7-14.4); WHITE BLOOD COUNT 6.06 x10e3/uL (4.8-10.8)
[2024-11-01 06:46] LABS: ALBUMIN 2.7 g/dL (3.5-5.0); ALBUMIN/GLOBULIN RATIO 0.9 (0.8-2.0); ANION GAP 15.4 mmol/L (8-16); BILIRUBIN,TOTAL 1.8 mg/dL (0.2-1.2); CALCIUM 8.8 mg/dL (8.4-10.2); CREATININE, SERUM 3.25 mg/dL (0.72-1.25); MAGNESIUM 1.9 MG/DL (1.3-2.1); TOTAL PROTEIN 5.7 g/dL (6.5-8.1)
[2024-11-01 06:55] LABS: POTASSIUM 3.4 mmol/L (3.5-5.1)
[2024-11-01 08:00] VITALS: BP 106/72; PULSE 73; RESP 20; TEMP 98.1; O2SAT 100
[2024-11-01 08:43] VITALS: BP 106/72; PULSE 95; RESP 20; TEMP 98.1; O2SAT 98
[2024-11-01] MEDS: PAROXETINE HCL 20 MG TAB PO SCH (11:49)
[2024-11-01] MEDS: AMIODARONE HCL 200 MG TAB PO SCH (11:49)
[2024-11-01] MEDS: FINASTERIDE 5 MG TAB PO SCH (11:49)
[2024-11-01] MEDS: SENNOSIDES 8.6 MG TAB PO SCH (11:49)
[2024-11-01] MEDS: DOCUSATE SODIUM 100 MG CAP PO SCH (11:50)
[2024-11-01] MEDS: TAMSULOSIN HCL 0.4 MG CAP PO SCH (11:51)
[2024-11-01 13:12] VITALS: BP 100/78; PULSE 100; RESP 20; TEMP 97.5; O2SAT 96
[2024-11-01] MEDS: POTASSIUM CHLORIDE 20 MEQ TAB CR PO STA (14:28)
[2024-11-01 16:36] VITALS: BP 131/88; PULSE 69; RESP 20; TEMP 97.3; O2SAT 100
[2024-11-01 20:00] VITALS: BP 134/76; PULSE 78; RESP 20; TEMP 97.7; O2SAT 100
[2024-11-02] VITALS (7 sets, daily range): BP systolic 105–124; BP diastolic 66–79; PULSE 69–97; RESP 18–20; TEMP 97.3–98.6; O2SAT 96–100
[2024-11-02 05:33] LABS: BASOPHILS # (AUTO) 0.1 (0.0-0.1); BASOPHILS % 0.8 % (0.0-1.0); EOSINOPHILS # (AUTO) 0.4 (0.0-0.4); EOSINOPHILS % 6.9 % (0.0-6.0); HEMATOCRIT 31.8 % (38.2-49.6); HEMOGLOBIN 10.9 g/dL (14.0-18.0); LYMPHOCYTES # (AUTO) 0.7 (1.0-3.2); LYMPHOCYTES % 11.7 % (18.0-39.1); MEAN CORPUSCULAR HEMOGLOBIN 32.8 pg (28-32); MEAN CORPUSCULAR HGB CONC 34.3 g/dL (31-35); MEAN CORPUSCULAR VOLUME 95.8 fL (81-99); MONOCYTES % 16.3 % (4.4-11.3); NEUTROPHILS % 63.5 % (38.7-80.0); PLATELET COUNT 157 x10e3/uL (140-360); RED BLOOD COUNT 3.32 x10e6/uL (4.3-5.7); WHITE BLOOD COUNT 6.26 x10e3/uL (4.8-10.8)
[2024-11-02 05:38] LABS: RED CELL DISTRIBUTION WIDTH 19.9 % (11.7-14.4)
[2024-11-02 11:31] LABS: ALBUMIN 2.9 g/dL (3.5-5.0); BILIRUBIN,DIRECT 0.7 mg/dL (0.0-0.5); BILIRUBIN,TOTAL 1.5 mg/dL (0.2-1.2); TOTAL PROTEIN 5.4 g/dL (6.5-8.1)
[2024-11-03] VITALS (8 sets, daily range): BP systolic 112–124; BP diastolic 68–85; PULSE 67–70; RESP 17–20; TEMP 97.5–98.6; O2SAT 95–100
[2024-11-03 07:01] LABS: ANION GAP 17.8 mmol/L (8-16); CALCIUM 8.7 mg/dL (8.4-10.2); CREATININE, SERUM 4.68 mg/dL (0.72-1.25); POTASSIUM 3.8 mmol/L (3.5-5.1)
[2024-11-03 07:21] LABS: % IRON SATURATION 16 % (15-50); IRON 29 ug/dL (65-175); TOTAL IRON BINDING CAPACITY 176 ug/dL (261-478); TRANSFERRIN 126 mg/dL (174-364)
[2024-11-03 07:33] LABS: FOLATE 7.3 ng/mL (7.0-15.4)
[2024-11-03] MEDS: ALBUMIN 25% 12.5GM 50ML 0 ML IV ONE (09:54)
[2024-11-03] MEDS ORDERED: SODIUM CHLORIDE 0.9% 250ML 200 ML IV PRN (19:30)
[2024-11-03] MEDS ORDERED: ALBUMIN 25% 12.5GM 0.25 GM/ML BTL IV PRN (19:30)
[2024-11-04 15:18] LABS: HEPATITIS B CORE AB TOTAL Negative; HEPATITIS B SURFACE AB QUANT <3.5; HEPATITIS B SURFACE AG (P) Negative
== END 2024-11-03 21:30 | disposition home or self-care (01) | DRG 640 ==
LOC: ER 18:31 → ERHOLD 20:46 → MED/SURG2 22:35
PROVIDERS: ADMIT Internal Medicine; ATTEND Internal Medicine
PROC: 5A1D70Z Performance of Urinary Filtration, Intermittent, Less than 6 Hours Per Day (ICD-10-PCS; principal; 2024-10-31)
DX: E87.70 Fluid overload, unspecified (principal); I50.23 Acute on chronic systolic (congestive) heart failure; J96.01 Acute respiratory failure with hypoxia; N18.6 End stage renal disease; I13.2 Hypertensive heart and chronic kidney disease with heart failure and with stage 5 chronic kidney disease, or end stage renal disease; R17 Unspecified jaundice; Q61.2 Polycystic kidney, adult type; E11.22 Type 2 diabetes mellitus with diabetic chronic kidney disease; K83.8 Other specified diseases of biliary tract; Z99.2 Dependence on renal dialysis; D63.1 Anemia in chronic kidney disease; E03.9 Hypothyroidism, unspecified; I25.10 Atherosclerotic heart disease of native coronary artery without angina pectoris; E87.6 Hypokalemia; K21.9 Gastro-esophageal reflux disease without esophagitis; J45.909 Unspecified asthma, uncomplicated; F41.9 Anxiety disorder, unspecified; F32.A Depression, unspecified; Z95.1 Presence of aortocoronary bypass graft; I48.0 Paroxysmal atrial fibrillation; Z79.4 Long term (current) use of insulin; Z79.890 Hormone replacement therapy; Z85.46 Personal history of malignant neoplasm of prostate; Z95.810 Presence of automatic (implantable) cardiac defibrillator; Z86.73 Personal history of transient ischemic attack (TIA), and cerebral infarction without residual deficits; E78.5 Hyperlipidemia, unspecified; Z88.5 Allergy status to narcotic agent; Z88.8 Allergy status to other drugs, medicaments and biological substances
CPT/HCPCS: 36415; 71045; 76705; 80048; 80053; 80076; 82550; 82607; 82746; 82948; 83540; 83690; 83735; 83880; 84466; 84484; 85025; 85045; 86704; 86706; 87340; 93005; 93306; 94760; 94799; 96372; 99284; J1644; J1815; J7030

== ENCOUNTER 2024-12-07 11:19 | Emergency (ER) | payer MEDICARE ==
[~2024-12-07] VITALS: Ht 185.4 cm; Wt 95.3 kg
[~2024-12-07 11:19] MED LIST changes: +AMIODARONE HCL200 MG PO; +CALCIUM ACETAT667 MG PO; +DIALYVITE TABL1 EACH PO; +LANTUS 3ML100 UNITS/ SQ; +METOPROLOL SUCC50 MG PO; +PRESERVISION A1 EAC2 PO; +TRAZODONE HCL50 MG PO
[2024-12-07 11:37] VITALS: TEMP 97.7
[2024-12-07] MEDS ORDERED: HYDRALAZINE HCL25 MG PO (11:54)
[2024-12-07] MEDS ORDERED: LEVOTHYROXINE25 MC1 (11:54)
[2024-12-07] MEDS ORDERED: METOPROLOL SUC100 MG (11:54)
[2024-12-07 12:04] VITALS: PULSE 61; RESP 17
[2024-12-07 14:39] VITALS: BP 116/75; PULSE 70; RESP 18; O2SAT 100
== END 2024-12-07 14:43 | disposition home or self-care (01) ==
LOC: ER 11:25
DX: N43.3 Hydrocele, unspecified (principal); I12.9 Hypertensive chronic kidney disease with stage 1 through stage 4 chronic kidney disease, or unspecified chronic kidney disease; E11.22 Type 2 diabetes mellitus with diabetic chronic kidney disease; N18.9 Chronic kidney disease, unspecified; Z99.2 Dependence on renal dialysis; I50.9 Heart failure, unspecified; J45.909 Unspecified asthma, uncomplicated; I48.91 Unspecified atrial fibrillation; E03.9 Hypothyroidism, unspecified; I25.10 Atherosclerotic heart disease of native coronary artery without angina pectoris; E78.5 Hyperlipidemia, unspecified; K21.9 Gastro-esophageal reflux disease without esophagitis; F41.9 Anxiety disorder, unspecified; F32.A Depression, unspecified; Z85.46 Personal history of malignant neoplasm of prostate; Z86.73 Personal history of transient ischemic attack (TIA), and cerebral infarction without residual deficits; Z95.1 Presence of aortocoronary bypass graft; Z95.810 Presence of automatic (implantable) cardiac defibrillator
CPT/HCPCS: 76870; 93976; 99283

== ENCOUNTER → 2025-03-26 | Outpatient (REF) | payer MEDICARE ==
[~2025-03-26] MED LIST changes: +LEVOTHYROXINE25 MC1; +METOPROLOL SUC100 MG
== END ==
LOC: US 12:45
PROVIDERS: ATTEND Urology
DX: N43.40 Spermatocele of epididymis, unspecified (principal)
CPT/HCPCS: 76870; 93976

== ENCOUNTER 2025-05-22 17:54 | Emergency (ER) | payer MEDICARE ==
[~2025-05-22] VITALS: Ht 185.4 cm; Wt 89.8 kg
[2025-05-22 18:27] VITALS: PULSE 70; RESP 18; TEMP 98.4
[2025-05-22 19:23] VITALS: BP 120/72; PULSE 88; RESP 18; TEMP 98; O2SAT 100
== END 2025-05-22 19:14 | disposition home or self-care (01) ==
LOC: ER 18:52
DX: R18.8 Other ascites (principal); K74.60 Unspecified cirrhosis of liver; I12.9 Hypertensive chronic kidney disease with stage 1 through stage 4 chronic kidney disease, or unspecified chronic kidney disease; E11.22 Type 2 diabetes mellitus with diabetic chronic kidney disease; N18.9 Chronic kidney disease, unspecified; Z99.2 Dependence on renal dialysis; I50.9 Heart failure, unspecified; I48.91 Unspecified atrial fibrillation; E03.9 Hypothyroidism, unspecified; I25.10 Atherosclerotic heart disease of native coronary artery without angina pectoris; E78.5 Hyperlipidemia, unspecified; Z86.73 Personal history of transient ischemic attack (TIA), and cerebral infarction without residual deficits; Z85.46 Personal history of malignant neoplasm of prostate
CPT/HCPCS: 99282